=== PATIENT | female | born 1945 | race Caucasian/White ===

== ENCOUNTER 2024-06-22 08:29 | Day surgery (SDC) | payer MEDICARE ==
[2024-05-12 12:03] VITALS: BP 138/73
[2024-05-25 07:09] VITALS: BP 154/70
--- NOTE | 2024-05-25 07:39 | NUR ---
VISITED DURING SPIRITUAL CARE ROUNDS. PT EXPRESSED WORRY AROUND ANESTHESIA AND NOT WAKING UP. WATER METER INSTALLER PROVIDED SUPPORTIVE PRESENCE, HOSPITALITY, PRAYER, FACILITATED INTERACTION WITH THERAPY ANIMAL. PT EXPRESSED GRATITUDE, EXHIBITED DECREASED SIGNS OF ANXIETY.
[2024-06-17 11:51] VITALS: BP 138/73
[2024-06-22] VITALS (7 sets, daily range): BP systolic 99–147; BP diastolic 50–76
[~2024-06-22] VITALS: Ht 162.6 cm; Wt 65.9 kg
[~2024-06-22 08:29] MED LIST: CEFAZOLIN SODIUM 2 GM/20 ML SYR IV SCH; DAILY VALUE1 EACH PO; DEXAMETHASONE SOD PHOS 4 MG/ML VIAL ONE; DICLOFENAC SODI75 MG PO; FAMOTIDINE 20 MG/ 2 ML VIAL ONE; FOSAMAX70 MG PO; GABAPENTIN 600 MG TAB PO SCH; GABAPENTIN300 MG PO; IBLOOD GLUCOSE TEST STRIP 1 EA TEST VI PRN; INTRA-ARTICULAR ANALGESIC INJECTION XX SCH; KETAMINE in NS 50 MG/5 ML SYR ONE; KETOROLAC TROMETHAMINE 30 MG/ML VIAL ONE; LACTATED RINGER'S 1,000 ML IV ONE; LACTATED RINGER'S 1,000 ML IV SCH; LIDOCAINE HCL 1% 5 ML SDV INJ ONE; LIDOCAINE HCL 2% 5 ML SDV ONE; LIPITOR40 MG PO; METOCLOPRAMIDE HCL 10 MG/2 ML SDV ONE; MIDAZOLAM HCL 2 MG/2 ML VIAL ONE; OXYCODONE HCL 5 MG TAB PO SCH; OXYCODONE HCL5 MG PO; PANTOPRAZOLE SODIUM 40 MG TABEC PO SCH; PROZAC10 MG PO; ROPIVACAINE IN 0.9% SOD CHL/PF 545 ML ELS.PMP.HR IRRIGATION SCH; Ropivacaine HCl 0.5% 30 ML VIAL ONE; Ropivacaine HCl 20 MG/10 ML AMP ONE; TRANEXAMIC ACID 2,000 MG in SODIUM CHLORIDE 0.9% 100 ML IV SCH; TRANEXAMIC ACID IN NACL,ISO-OS 1,000 MG/100 ML PIGGYBACK IV SCH; VITAMIN D31 ML MISC; VITAMIN D325 MC2 PO; XARELTO10 MG PO; fentaNYL citrate 100 MCG/2 ML VIAL ONE; ondansetron HCL 4 MG TAB PO SCH; ondansetron HCL 4 MG/2 ML VIAL ONE; propofoL 200 MG/20 ML VIAL ONE
[2024-06-22] MEDS ORDERED: MIDAZOLAM HCL 2 MG/2 ML VIAL ONE (10:23)
[2024-06-22] MEDS ORDERED: KETOROLAC TROMETHAMINE 30 MG/ML VIAL IV PRN (10:45)
[2024-06-22] MEDS ORDERED: OXYCODONE HCL 5 MG TAB PO PRN (10:45)
[2024-06-22] MEDS ORDERED: DIGOXIN 500 MCG/2 ML AMP ONE (11:31)
[2024-06-22] MEDS ORDERED: fentaNYL citrate 50 MCG/ML SDV IV PRN (11:45)
[2024-06-22] MEDS ORDERED: METOCLOPRAMIDE HCL 10 MG/2 ML SDV IV PRN (11:45)
[2024-06-22] MEDS ORDERED: IBLOOD GLUCOSE TEST STRIP 1 EA TEST VI PRN (11:45)
[2024-06-22] MEDS ORDERED: NALOXONE HCL 0.4 MG SYR IV PRN (11:45)
[2024-06-22] MEDS ORDERED: ondansetron HCL 4 MG/2 ML VIAL IV PRN (11:45)
[2024-06-22] MEDS ORDERED: droPERidol 5 MG/2 ML VIAL IV PRN (11:45)
[2024-06-22] MEDS ORDERED: MORPHINE SULFATE 10 MG/ML VIAL IV PRN (11:45)
[2024-06-22] MEDS ORDERED: PROCHLORPERAZINE EDISYLATE 10 MG/2 ML VIAL IV PRN (11:45)
[2024-06-22] MEDS ORDERED: GABAPENTIN300 MG PO (12:07)
[2024-06-22] MEDS ORDERED: SENNA LAX8.6 MG PO (12:07)
[2024-06-22] MEDS ORDERED: XARELTO10 MG PO (12:07)
[2024-06-22] MEDS ORDERED: OXYCODONE HCL5 MG PO (12:07)
--- NOTE | 2024-06-22 12:42 | NUR ---
06/22/24 1242 Katherine Melchor 1220 PT TO PACU SLEEPING ORAL AIRWAY IN PLACE O2 VIA MASK FOGGING NOTED IN MASK. 1227 ORAL AIRWAY REMOVED O2 TURNED OFF PT MAINTAINS SATS ON ROOM AIR. 1230 TOW TRUCK OPERATOR AT BEDSIDE TAKING PIC OF RT KNEE.
[2024-06-22] MEDS ORDERED: ACETAMINOPHEN 1,000 MG/100 ML VIAL IV ONE (13:00)
[2024-06-22] MEDS ORDERED: TRANEXAMIC ACID IN NACL,ISO-OS 1,000 MG/100 ML PIGGYBACK IV SCH (13:31)
--- NOTE | 2024-06-22 13:45 | OR ---
[facility] [address] [place], [place] [address] Signed DATE OF OPERATION: 06/22/2024 SURGEON: Tomas Melchor MD PREOPERATIVE DIAGNOSIS: Severe degenerative joint disease, right knee. POSTOPERATIVE DIAGNOSIS: Severe degenerative joint disease, right knee. PROCEDURE PERFORMED: Right total knee arthroplasty with Zachary. MEDICATION ADMINISTRATION PROFESSIONAL: Loretta Spring PA-C. Loretta was present and critical for all portions of procedure. ANESTHESIA: Spinal. BLOOD LOSS: 165 mL. TOURNIQUET TIME: Zero. IMPLANTS: Chante Triathlon size 4, 11 mm polyethylene and 32 mm patella. BRIEF HISTORY: Bella is a 79-year-old female with significant arthritis in her knee and a valgus deformity. Risks and benefits of operative treatment were discussed with her and she elected to proceed. DESCRIPTION OF PROCEDURE: Once consent was obtained she was taken to the operating room. After adequate anesthesia, she was placed on operating room table with a hip bump. The leg was then prepped and draped in a standard sterile fashion. Standard anterior midline approach was taken through skin and subcutaneous tissue. A low mid vastus arthrotomy was performed. The infrapatellar fat pad was excised and the MCL was of a sleeve around the Electronically Signed By: TOMAS MELCHOR MD 06/22/24 1345 PATIENT NAME: BELLA WEAVER OPERATIVE REPORT DATE OF : 49 REPORT #: [id number] PHYSICIAN: TOMAS MELCHOR MD PCP: PITER PRICE REPORT IS CONFIDENTIAL AND NOT TO BE RELEASED WITHOUT AUTHORIZATION [facility] [address], [place] [address] Signed mid medial portion. The anterior horns of menisci were transected and the ACL was transected. PCL was found to be intact. The computer arrays were then placed in the medial femoral condyle and proximal tibia. The leg was then registered with the computer. Fine anatomic point of the knee was then registered. Varus valgus poses were then taken and slight adjustments were made primarily moving the femur proximally. The robot was then brought in. The four straight cuts and 2 angle cuts were made with care taken to protect the patellar tendon and MCL. The bone remnants were removed as were any remaining osteophytes particularly posterior laterally. Posterior osteophytes removed off the femur, but no release was performed. The trials were positioned. Knee was taken through range of motion and found to be stable with an 11 mm polyethylene. The patella was cut, sized and drilled for a 32 mm patella. The distal femoral drill holes were completed and the proximal tibia was finished using the keel punch and drill holes. The prosthesis was obtained. The tibia was impacted until it was well seated and flushed. The polyethylene was snapped into position. The femur was impacted. Patella was clamped into position until it was seated flush circumferentially. The knee was taken through range of motion. The patella tracked little bit laterally, so a small lateral release was performed. Once this was completed, the periarticular soft tissue was injected with 100 mL ropivacaine and Toradol mixture. Knee was then irrigated with one bottle of Surgiphor followed by normal saline. The On-Q pain pump was percutaneously placed into the adductor canal from the suprapatellar pouch. The arthrotomy was then closed with the knee in flexion. #2 FiberWire and #2 Stratafix were used. 0 Stratafix was used for the subcutaneous tissue and 3-0 Stratafix for the skin. The wound was sealed with LiquiBand and Steri-Strips and dressed with Acticoat-7 dressing, ABDs and Darion wrap. She tolerated the procedure well. All sponge, needle, and instrument counts were correct. oTmas Melchor MD BA/MODL /[id number] Copies: ~ Electronically Signed By: TOMAS MELCHOR MD 06/22/24 1345 PATIENT NAME: BELLA WEAVER OPERATIVE REPORT DATE OF : 49 REPORT #: [id number] PHYSICIAN: TOMAS MELCHOR MD PCP: PITER PRICE REPORT IS CONFIDENTIAL AND NOT TO BE RELEASED WITHOUT AUTHORIZATION
--- NOTE | 2024-06-22 13:51 | NUR ---
PT TO MED-SURG ALERT AND INTERACTIVE AGREES SHE IS COMFORTABLE. FRESH H20 TO BEDSIDE, PURWIK PLACED WHILE SPINAL CONTINUES TO WEAR OFF. PT EXPRESSES NEED TO VOID. PT C/O FEELING TIRED AND GROGGY, ENCOURAGED TO HER REST AND DOZE FOR NOW. SHE DENIES OTHER NEEDS. PULSE OX IN PLACE
--- NOTE | 2024-06-22 14:39 | NUR ---
medications reconciled
--- NOTE | 2024-06-22 14:57 | NUR ---
PT CONTINUES RESTING EYES CLOSED STATES SHE DOZES IN AND OUT NOT REALLY SLEEPING. PT DENIES PAIN AND AGREES SHE IS COMFORTABLE. SCD, CRYO PULSE OX ETC ARE IN PLACE
[2024-06-22] MEDS ORDERED: CEFAZOLIN SODIUM 2 GM/20 ML SYR IV SCH ×2 (15:00→18:00)
[2024-06-22] MEDS ORDERED: GABAPENTIN 300 MG CAP PO SCH (15:00)
[2024-06-22] MEDS ORDERED: ACETAMINOPHEN 500 MG TAB PO SCH ×2 (15:00→21:00)
--- NOTE | 2024-06-22 16:09 | NUR ---
PT WORKING WITH P/T
--- NOTE | 2024-06-22 16:58 | NUR ---
PT DOES WELL WITH P/T IS ABLE TO EMPTY BLADDER WHILE UP. SITTING UP IN BED VISITING A FRIEND AT THIS TIME
[2024-06-22] MEDS ORDERED: ATORVASTATIN 40 MG TAB PO SCH (17:00)
--- NOTE | 2024-06-22 18:13 | NUR ---
PT TOLERATES EVENING MEAL SITTING UP IN BED VISITING A FRIEND. AGREES SHE IS COMFORTABLE, DENIES NEEDS AT THIS TIME
--- NOTE | 2024-06-22 18:45 | NUR ---
PATIENT IN BED RESTING WITH EYES CLOSED. VITALS AND I&O'S DONE AND CHARTED. CRYO FILLED. CALL LIGHT IN REACH. NO FURTHER NEEDS AT THIS TIME.
--- NOTE | 2024-06-22 19:32 | NUR ---
REPORT RECEIVED FROM DAY SHIFT RN. PT LYING IN BED RESTING WITH EYES CLOSED. RESPIRATIONS EVEN. SpO2 MID 90'S ON RA. HR 60'S. WHITE BOARD UPDATED. CALL LIGHT IN REACH.
[2024-06-22] MEDS ORDERED: SENNOSIDES 1 TAB PO SCH (21:00)
--- NOTE | 2024-06-22 21:33 | NUR ---
EVENING ASSESSMENT COMPLETE. SCHEDULED MEDS ADMIN PER EMAR. PT DENIES PAIN OR NAUSEA. UP TO BR WITH FWW AND SBA TO VOID AN UNMEASURED AMOUNT. BACK TO BED, MALKA WELL. GAIT STEADY. PT DENIES DIZZINESS WITH AMBULATION. RIGHT KNEE DRESSING CDI. SMALL AMOUNT SEROSANG DRAINAGE AT ON-Q INSERTION SITE. ON-Q INFUSING AT 4ML/HR. CMS INTACT. SCD'S/CRYO IN PLACE. PT DENIES QUESTIONS OR CONCERNS. CALL LIGHT IN REACH. BED ALARM FOR SAFETY.
--- NOTE | 2024-06-22 23:17 | NUR ---
PT RESTING IN BED WITH EYES CLOSED. RESPIRATIONS EVEN. SpO2 97% ON RA. HR 70'S. BED ALARM FOR SAFETY. CALL LIGHT IN REACH.
[2024-06-23 01:29] VITALS: BP 121/57
--- NOTE | 2024-06-23 01:50 | NUR ---
CALL LIGHT ANSWERED. PT UP TO BR WITH FWW AND SBA TO VOID AND UNMEASURED AMOUNT. GAIT STEADY. PT ABLE TO DO OWN RAMAN CARE. BACK TO BED, MALKA WELL. REPORTS HEADACHE AND RLE PAIN 5/10. PRN FOR PAIN ADMIN PER EMAR. RLE ASSESSMENT UNCHANGED. SCD'S/TEDS IN PLACE. FRESH ICE TO CRYO. CPOX IN PLACE. PT DENIES FURTHER NEEDS. BED ALARM FOR SAFETY. CALL LIGHT IN REACH.
--- NOTE | 2024-06-23 03:48 | NUR ---
PT RESTING IN BED EYES CLOSED. RESPIRATIONS EVEN. CALL LIGHT IN REACH.
[2024-06-23 05:24] VITALS: BP 119/52
[2024-06-23 05:25] VITALS: BP 119/52
--- NOTE | 2024-06-23 05:26 | NUR ---
CALL LIGHT ANSWERED. PT UP TO BR WITH FWW AND SBA TO VOID. GAIT STEADY. BACK TO BED, MALKA WELL. SCD'S/TEDS IN PLACE. FRESH ICE TO CRYO. NO C/O PAIN AT THIS TIME. COFFEE AND SNACK PROVIDED. NO FURTHER NEEDS. BED ALARM FOR SAFETY. CALL LIGHT IN REACH.
--- NOTE | 2024-06-23 07:00 | NUR ---
PATIENT UP TO THE BATHROOM TO VOID WITH MINIMAL ASSIST. PATIENT IS BACK IN BED. SCD, CPOX AND CRYO ARE BACK ON. PATIENT DID NOT HAVE ANY C/O OR CONCERN VERBALIZED. NO FURTHER NEEDS AT THIS TIME. CALL LIGHT AND SIDE TABLE WITHIN REACH.
--- NOTE | 2024-06-23 07:32 | NUR ---
PT ALERT AND INTERACTIVE AT TIME OF SHIFT REPORT. DENIES DISCOMFORTS OR NEEDS OF. CALL LIGHT AND NEEDED ITEMS IN REACH
--- NOTE | 2024-06-23 07:50 | NUR ---
In to speak with pt and complete assessment. Dr. Melchor is in the room. Pt has multiple questions about her insurance and OBS/IN/SDS. He asks that I answer these questions. He plans on pt discharging to home today after she works with PT. Pt states she lives in [place] in a house with 1 steps. She has obtained DME requested by . He friend drove her and will take her home. Pt states other friends plan on staying with her. She denies any needs. She does ask several questions about OBS/IP. We discussed she is a SDS pt and is considered extended stay as she needed more therapy before she could leave. She also has questions as she feels her Advantage plan is not paying what they should. I encouraged her to call Medicare and to also consider changing to Medicare A&B as coverage may be better. She denies other needs. She will work with [facility] [employer] for PT after she gets home. She denies financial issues or any needs.
[2024-06-23] MEDS ORDERED: Rivaroxaban 10 MG TAB PO SCH (08:00)
[2024-06-23] MEDS ORDERED: MULTIVITAMINS THERAPEUTIC 1 EA TAB PO SCH (08:00)
[2024-06-23] MEDS ORDERED: CHOLECALCIFEROL 1,000 UNIT TAB PO SCH (08:00)
[2024-06-23] MEDS ORDERED: DICLOFENAC SOD 75 MG TABEC PO SCH ×2 (08:00→12:00)
--- NOTE | 2024-06-23 08:32 | NUR ---
DR SAWANT IN TO SEE PT EARLIER, SHE AGREES ALL HER QUESTONS WERE ANSWERED. PT UP TO THE TOILET AND THEN TO THE RECLINER FOR MORNING MEAL. SHE AGREES SHE IS COMFORTABLE DENIES PAIN STATES SHE IS JUST A LITTLE SORE IN HER MUSCLES.
[2024-06-23] MEDS ORDERED: FLUOXETINE HCL 10 MG CAP PO SCH (09:00)
[2024-06-23] MEDS ORDERED: cefuroxime axetiL 250 MG TAB PO SCH (09:00)
[2024-06-23 09:38] VITALS: BP 124/57
[2024-06-23 10:15] VITALS: BP 124/57
--- NOTE | 2024-06-23 11:48 | NUR ---
PT WORKS WITH P/T THEN RETURNS TO SITTING IN RECLINER, VISITOR IS PRESENT. PT UP TO TOILET INDEPENDANTLY RETURNS TO CHAIR
--- NOTE | 2024-06-23 13:27 | NUR ---
UR CLINICAL REVIEW: 2 MN FOR VERSALUS-MEET CRITERIA FOR EXTENDED STAY RECOVERY [facility] MCR EXTENDED STAY 06/22/24 @ 4453 ORDER MATCHES REG DISCHARGE TO HOME WHEN STABLE CLINICAL FAXED FOR REVIEW
--- NOTE | 2024-06-23 13:31 | NUR ---
PT RETURNS TO RESTING IN BED AFTER NOON MEAL. CRYO IS IN PLACE SCD'S ARE ON
--- NOTE | 2024-06-23 13:50 | NUR ---
VISTED DURING SPIRITUAL CARE ROUNDS. PT SUPPORTED BY FRIEND IN ROOM. BOTH EXPRESSED ANXIETY AROUND DELAYED DISCHARGE. TOWER EQUIPMENT REPAIRER PROVIDED SUPPORTIVE PRESENCE, ANXIETY CONTAINMENT, ADVOCATED FOR PT, PROVIDED PRAYER. PT AND ANGLESMITH HELPER EXPRESSED GRATITUDE.
[2024-06-23 14:17] VITALS: BP 127/59
--- NOTE | 2024-06-23 14:23 | NUR ---
PHARMACY IN TO REVIEW MEDS WITH PT
== END 2024-06-23 14:45 | disposition home or self-care (01) ==
LOC: DS 08:29 → MS 13:43 → DS 06-23 14:45
PROVIDERS: ATTEND Specialist
PROC: 0SRC0JZ Replacement of Right Knee Joint with Synthetic Substitute, Open Approach (ICD-10-PCS; principal; 2024-06-22 11:30)
DX: M17.0 Bilateral primary osteoarthritis of knee (principal); M21.061 Valgus deformity, not elsewhere classified, right knee; E78.00 Pure hypercholesterolemia, unspecified
CPT/HCPCS: 01400; 64447; 64450; 73560; 76942; 96374; 97110; 97116; 97161; 97530; A9270; C1713; C1776; J0131; J0690; J1100; J1160; J1885; J2003; J2250; J2405; J2704; J2765; J2795; J3010; J3490; J7121; J7999